=== PATIENT | male | born 1955 | race Caucasian/White ===

== ENCOUNTER 2023-06-10 12:25 | Inpatient (IN) | payer OTHER ==
--- OUTSIDE RECORDS SUMMARY | 2023-06-10 12:40 | XMS REPORT | Continuity of Care Document ---
:1955 Author Organization [facility] Address [address] [address] Care Team Providers Name Role Phone JYOTI SULLIVAN M.D. Attending Clinician Unavailable Jyoti Sullivan Attending Clinician Problems Condition Condition Condition Status Onset Resolution Last Treating Co mments Source Name Details Category Date Date Treatment Clinician Date AMP 1 YR AMP 1 YR Diagnosis Active 2017-07-27 Memoria F/U F/U Active 06-07 10:24:00 l 06/07/2017 00:00: Rodrigo REYNOLDS [facility] 00 AMP FU AMP FU Diagnosis Active 2016-07-14 Me moria Active 06-01 08:54:00 l 06/01/2016 00:00: Rodrigo REYNOLDS [facility] 00 F/U F/U Diagnosis Active 2016-10-13 Mem oria Active 07-16 12:47:00 l 07/16/2015 00:00: Rodrigo REYNOLDS [facility] 00 FU FU Diagnosis Active 2014-08-14 Mem oria Active 02-13 08:20:00 l 02/13/2014 00:00: Rodrigo REYNOLDS [facility] 00 POST D/C POST D/C Diagnosis Active 2013-10-08 Memoria F/U APPT - F/U APPT - 06-22 15:13:00 l NO ORDERS NO ORDERS 00:00: Sweta wheatley WRITTEN WRITTEN 00 Active 06/22/2013 GAIL [facility] AMPUTEE AMPUTEE Diagnosis Active 2013-06-12 Memoria Active 06-05 13:27:00 l 06/05/2013 00:00: Rodrigo REYNOLDS [facility] 00 LLE CRUSH LLE CRUSH Diagnosis Active 2013-06-07 Memoria INJURY INJURY 05-21 16:03:00 l Active 02:00: Valdemar 05/21/2013 00 [facility] LIFE LIFE Diagnosis Active 2013-05-25 [facility] oria FLIGHT FLIGHT 05-21 13:27:00 l Active 02:00: Valdemar 05/21/2013 00 [facility] LEG INJURY LEG Diagnosis Active 2013-05-21 Memoria INJURY 05-21 05:16:00 l Active 02:00: Valdemar 05/21/2013 00 [facility] Acquired Acquired Problem Active [place] 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, left knee, left History of History Problem Resolve 2017-07-30 Memoria amputation of d 00:24:11 l of leg amputation Rodrigo n through of leg tibia and through fibula tibia and (situation fibula ) (situation ) Resolved Problem 07/30/2017 left [facility] Hypertensi Hypertens Problem Active 2017-07-30 Memoria ve maria l 00:24:11 l disorder, disorder, Herm corry systemic systemic arterial arterial (disorder) (disorder) Active Problem 07/30/2017 [facility] Hyperlipid Hyperlipi Problem Active 2017-07-30 Memoria emia demia 00:24:11 l (disorder) (disorder) He rmann Active Problem 07/30/2017 [facility] Amputated Amputated Problem Active 2017-07-30 Memoria below knee below knee 00:24:11 l (finding) (finding) Herm corry Active Problem 07/30/2017 [facility] Amputation Problem Active 2017-07-30 M emoria of leg Amputation 00:24:11 l through of leg [place] tibia and through fibula tibia and (procedure fibula ) (procedure ) Active Problem 07/30/2017 left [facility] Amputee - Amputee - Problem Active 2017-07-30 Memoria limb limb 00:24:11 l (finding) (finding) Herm corry Active Problem 07/30/2017 [facility] Obesity Obesity Problem Active 2017-07-30 Me moria (disorder) (disorder) 00:24:11 l Active [place] Problem 07/30/2017 [facility] CRUSHING CRUSHING Diagnosis Active 2013-06-07 Memoria INJURY NOS INJURY NOS 16:03:00 l Active [facility] Foot Foot Problem Active [place] injury injury Physici ans History of Past Illness Condition Condition Condition Status Onset Resolution Last Treating Co mments Source Name Details Category Date Date Treatment Clinician Date Final: Final: Problem 2015-05-23 2015-05-23 Memoria Gait Gait 7-14 00:09:18 00:09:18 l abnormalit abnormalit 05:00: He rmann y y 00 05/20/2015 05/23/2015 [facility] Final: Final: Problem 2015-05-23 2015-05-23 Memoria Amputation Amputation 7-14 00:09:18 00:09:18 l stump stump 05:00: Valdemar complicati complicati 00 on NOS on NOS 05/20/2015 05/23/2015 [facility] Allergies, Adverse Reactions, Alerts This patient has no known allergies or adverse reactions. Social History Smoking Status Start Date Stop Date Source Social History [facility] Medications Ordered Filled Start Stop Current Ordering Indication Dosage Frequency Signature Comments Components Source Medication Medication Date Date Medication? Clinician (SIG) Name Name Sulfamethox Sulfamethox Yes JYOTI TAKE 1 TAB [facility] azole-Trime azole-Trime -09 SULLIVAN BID Physici thoprim thoprim 00:00: M.D. ans 800-160 MG 800-160 MG 00 Oral Tablet Oral Tablet atorvastati Yes 20 mg = 1 M emoria n 20 mg 9-20 tab, PO, l oral tablet 14:47: Bedtime, # Valdemar 00 90 tab, 1 Refill(s) Hydrochloro Yes 1 tab, PO, Memoria thiazide 9-20 Daily, # l 12.5 MG / 14:47: 30 tab, 0 Her fraga telmisartan 00 Refill(s) 80 MG Oral Tablet diuretic 2013-11 Yes diuretic Memor ia tablet 0-08 tablet, l 13:33: Daily, [place] 00 Refill(s) 0 lovastatin 2013-11 Yes 10 mg = 1 Me moria 10 mg oral 0-08 tab, PO, l tablet 13:33: Bedtime, # Nessa nn 00 30 tab, 0 Refill(s) Tdap No Kiana 0.5 mL, Memoria 05-21 Martha Route: IM, l 07:49: Quinn-Naida Drug Form: H ermann 00 nda INJ, kg, ONCE, Start date: 05/21/13 2:49:00, Stop date: 05/21/13 2:49:00(Td ap ) For Adolecent and Adult use For IM Use. Same as: Adacel (Tdap) Immunizations Ordered Immunization Filled Immunization Date Status Commen ts Source Name Name diphtheria/pertussis 2013-05-21 Completed Sy rial , acel/tetanus adult 08:40:00 Herm corry diphtheria/pertussis 2013-05-21 Completed Sy rial , acel/tetanus adult 08:40:00 Herm corry Vital Signs Vital Name Observation Time Observation Value Comments Source Height 2017-07-27 15:12:00 182.88 cm [facility] Height 2017-07-27 14:41:00 182.88 cm [facility] [place] Weight 2017-07-27 14:41:00 [facility] [place] BMI Calculated 2017-07-27 14:41:00 Mem[facility] al [place] Respitory Rate 2017-07-27 14:41:00 Memori al [place] Heart Rate 2017-07-27 14:41:00 [facility] [place] Systolic (mm Hg) 2017-07-27 14:41:00 Sy rial [place] Diastolic (mm Hg) 2017-07-27 14:41:00 Mem orial [place] Weight 2016-07-14 14:07:00 [facility] [place] BMI Calculated 2016-07-14 14:07:00 Memori al Val[place] Temperature Oral (F) 2016-07-14 14:07:00 98.3 F [facility] Height 2016-07-14 14:07:00 182.88 cm [facility] Heart Rate 2016-07-14 14:07:00 [facility] Respitory Rate 2016-07-14 14:07:00 Memori al [place] Systolic (mm Hg) 2016-07-14 14:07:00 Sy rial Valdemar Diastolic (mm Hg) 2016-07-14 14:07:00 Mem orial [place] BMI Calculated 2015-07-16 13:58:00 Memori al [place] Weight 2015-07-16 13:58:00 [facility] [place] Height 2015-07-16 13:58:00 182.88 cm [facility] [place] Heart Rate 2015-07-16 13:58:00 [facility] Respitory Rate 2015-07-16 13:58:00 Memori al [place] Systolic (mm Hg) 2015-07-16 13:58:00 Sy rial [place] Diastolic (mm Hg) 2015-07-16 13:58:00 Mem orial Valdemar Height 2015-05-20 14:58:00 182.88 cm [facility] Systolic (mm Hg) 2015-05-20 13:26:00 Sy rial [place] Diastolic (mm Hg) 2015-05-20 13:26:00 Mem orial [place] Weight 2015-05-20 13:26:00 [facility] BMI Calculated 2015-05-20 13:26:00 Memori al [place] Height 2015-05-20 13:26:00 182.88 cm [facility] [place] Height 2015-02-18 15:06:00 182.88 cm [facility] Systolic (mm Hg) 2015-02-18 13:26:00 Sy rial [place] Diastolic (mm Hg) 2015-02-18 13:26:00 Mem orial Valdemar Weight 2015-02-18 13:26:00 [facility] Height 2015-02-18 13:26:00 182.88 cm [facility] BMI Calculated 2015-02-18 13:26:00 Memori al [place] Temperature Oral (F) 2015-02-18 13:26:00 97.8 F [facility] Heart Rate 2015-02-18 13:26:00 [facility] [place] Respitory Rate 2015-02-18 13:26:00 Memori al [place] Weight 2014-11-13 14:16:00 [facility] [place] Height 2014-11-13 14:16:00 182.88 cm [facility] BMI Calculated 2014-11-13 14:16:00 Memori al Valdem[place] Respitory Rate 2014-11-13 14:16:00 Memori al [place] Diastolic (mm Hg) 2014-11-13 14:16:00 Mem orial [place] Systolic (mm Hg) 2014-11-13 14:16:00 Sy rial Valdemar Heart Rate 2014-11-13 14:16:00 [facility] [place] Height 2014-08-15 19:03:00 182.88 cm [facility] Diastolic (mm Hg) 2014-08-14 13:29:00 Mem orial [place] Systolic (mm Hg) 2014-08-14 13:29:00 Sy rial [place] Heart Rate 2014-08-14 13:29:00 [facility] Respitory Rate 2014-08-14 13:29:00 Memori al [place] Weight 2014-08-14 13:29:00 [facility] Height 2014-08-14 13:29:00 182.88 cm [facility] [place] BMI Calculated 2014-08-14 13:29:00 Memori al Valdemar Respitory Rate 2013-10-08 21:16:00 Memori al [place] Systolic (mm Hg) 2013-10-08 21:16:00 Sy rial [place]dem[place] Heart Rate 2013-10-08 21:16:00 [facility] Diastolic (mm Hg) 2013-10-08 21:16:00 Mem orial [place] Weight 2013-10-08 21:16:00 [facility] [place] Height 2013-10-08 21:16:[address] [facility] Procedure Date / Time Performed Performing Clinician Mau daniels Amputation of the lower [facility] limb<sup>1</sup> Encounters Start End Encounter Admission Attending Care Care Encounter Source Date/Time Date/Time Type Type Clinicians Facility Department ID 2023-06-10 Preadmit [facility] GAILIE [id number] emoria 12:36:05 00 roberth SolValdemar 2023-06-10 Outpatient [facility] MIGUEL [id number] Memoria 12:36:05 05 l Valdemar 2019-01-08 2019-01-08 Appointmen ABDIFATAH SULLIVAN UTP [id number] [place] 15:30:00 15:30:00 t; JYOTI SULLIVAN P hysici DANIELLE, M.D. ans M.D. 2017-07-27 2017-07-28 Outpatient nullFlavo [facility] [id number] Memoria 13:00:00 04:59:00 r [facility] 16 l Valdemar [facility] 2017-07-27 2017-07-27 Outpatient LESLIE SullivanTIRR [id number] 08:00:00 23:59:00 Jyoti Jones 2017-07-27 2017-07-27 Appointmen ABDIFATAH SULLIVAN [facility]TP [id number] [place] 10:15:00 10:15:00 t; JYOTI SULLIVAN P hysici DANIELLE, M.D. ans M.D. 2016-07-14 2016-07-15 Outpatient nullFlavo [facility] [id number] Memoria 13:46:00 04:59:00 r [facility] 15 l Valdemar [facility] 2016-07-14 2016-07-14 Outpatient Sullivan, MHTIRR MHTIRR [id number] 08:46:00 23:59:00 Jyoti H 15 2015-07-16 2015-07-17 Outpatient nullFlavo [facility] [id number] Memoria 13:50:00 04:59:00 r [facility] 13 [facility] 2015-07-16 2015-07-16 Outpatient Sullivan, MHTIRR MHTIRR [id number] 08:50:00 23:59:00 Jyoti H 13 2015-05-20 2015-05-21 Outpatient nullFlavo [facility] [id number] Memoria 13:00:00 04:59:00 r [facility] 12 [facility] 2015-05-20 2015-05-20 Outpatient Sullivan, MHTIRR MHTIRR [id number] 08:00:00 23:59:00 Jyoti H 12 2015-02-18 2015-02-19 Outpatient nullFlavo [facility] [id number] Memoria 13:11:00 04:59:00 li [place] 11 roberth Solann 2015-02-18 2015-02-18 Outpatient Sullivan, 2.16.840. 2.16.840.1. 4 [id number] 08:11:00 23:59:00 Jyoti H [id number] [id number] 9429-01-07 2014-11-14 Outpatient nullFlavo [facility] [id number] Memoria 13:54:00 05:59:00 r Valdemar 09 roberth CHEN [place] 2014-11-13 2014-11-13 Outpatient Sullivan, 2.16.840. 2.16.840.1. 4 [id number] 07:54:00 23:59:00 Jyoti H [id number] [id number] 02 1011-10-08 2014-08-15 Outpatient nullFlavo [facility] [id number] Memoria 13:00:00 04:59:00 r Valdemar 08 roberth Aldrich 2014-08-14 2014-08-14 Outpatient Sullivan, 2.16.840. 2.16.840.1. 4 [id number] 08:00:00 23:59:00 Jyoti Kimble [id number] 0612-11-29 2013-11-03 Outpatient 2.16.840. 2.16.840.1. 4 [id number] Memoria 13:44:00 23:59:00 [id number] [id number] 5.0.100 Rodrigo n 00 [facility] 2013-10-08 2013-10-08 Outpatient 2.16.840. 2.16.840.1. 4 [id number] Memoria 11:11:00 23:59:00 [id number] 3.615.0.1 5.0.100 Rodrigo n 00 [facility] 2013-10-08 2013-10-08 Outpatient [facility] [id number] Memoria 11:11:00 11:11:[address] [facility] 2013-05-21 2013-05-21 AA nullFlavo [facility] [id number] Memoria 02:36:00 23:59:00 [facility] 70 [facility] 2013-05-21 2013-05-21 Inpatient nullFlavo [facility] [id number] Memoria 02:25:00 02:25:00 [facility] 67 [facility] Results This patient has no known results. Notes Date/Time Note Provider Source 2013-06-07 EXAM: Abdomen 1 view [facility] dical 08:34:00-00:00 Center DATE: Jun 07, 2013 08:34:00 AM. CLINICAL INDICATION: Constipation COMPARISON: 06/05/2013 FINDINGS: Gas-distended, mildly dilate d loops of small bowel seen measuring approximately up to 4.5 cm in diameter. Gaseous distention of the colon also seen. Overall, this may represent small bowel ileus. No abnormal calcifications seen. Multilevel degenerative changes seen in the bone s. IMPRESSION: 1. Interval significant impr ovement with residual mild dilation of gas- distended small bowel loops. 2013-06-05 EXAM: XR ABDOMEN 1 VIEW [facility] 14:30:00-00:00 Center DATE: June 05, 2013 at 1441. INDICATION: Abdominal distention. ADDITIONAL INFORMATION: None. COMPARISON: X-ray abdomen June 03, 2013. TECHNIQUE: Four AP supine views of the abdomen p rovided for interpretation. FINDINGS: Lower thorax is unremarkable where visualized. Diffuse gaseous distention o f the small and large bowel appears stable compared to prior exam, most likely representing ileus. NG tube terminates in the stomach. No abnormal mass or organomegaly seen. No suspicious calcifications found. No worrisome skeletal abnormalities. IMPRESSION: Ileus; continued surveillance with s erial radiographs recommend. 2013-06-04 EXAM:ABDOMEN [address] [facility] ica 22:55:00-00:00 Center DATE: Abdomen 1 view - Jun 04, 2013 10:55:00 PM . CLINICAL INDICATION: Abdominal distention. COMPARISON: June 03, 2013 FINDINGS: AP supine view of the abdom en upper abdomen is available for review. NG tube in place with tip in the gastric fundus. Persistent gaseous distention of small and large bowel loops predominantly in the t ransverse colon, with no sig nificant change from prior exam. Recommend continued followup. Degenerative changes in the dorsolumbar spine IMPRESSION: NG tube with tip in the char darcy fundus. Persistent gaseous distention of small and large bowel may represent ileus. Recommend continued followup. 2013-06-03 EXAM: XR ABDOMEN 1 VIEW [facility] 18:00:00-00:00 Center DATE: 06/03/2013 at 1824 hours. INDICATION: Abdominal distention. ADDITIONAL INFORMATION: None. COMPARISON: 05/29/2013 at 0218 hours. TECHNIQUE: 2 radiographs provided for interpreta tion. DISCUSSION: Lower thorax is unremarkable where visualized. Diffusely dilated loops of s mall and large bowel suggest ileus. Some stool is identified in the rectum. No abnormal mass or organomegaly seen. No suspicious calcifications found. No worrisome skeletal abnormalities. IMPRESSION: 1. Probable adynamic ileus. Continued surveillance with serial radiographs recommended to a ensure resolution and/or exclude obstruction. Interpreted by Kavon Summers MD. 2013-05-30 EXAM: XR CHEST, 1 VIEW [facility] 22:45:00-00:00 Center DATE: May 30, 2013 10:45:00 PM INDICATION: Fever COMPARISON: One view chest radiograph dated May 29, 2013 TECHNIQUE: Single frontal view of the chest is s ubmitted for interpretation. FINDINGS: There is left lower lobe sub segmental atelectasis present. The lungs are clear of focal consolidation or pneumothorax. The costophrenic sulci are sharp without effusion. The cardiomediastinal silhouette and visualized osseous structures are unremarka ble. IMPRESSION: Unchanged radiographic appearance of the chest. 2013-05-29 EXAM: CT ANGIOGRAM CHEST WITH CONTRAST [facility] 02:15:00-00:00 Center DATE: May 29, 2013 02:29:00 AM COMPARISON: CT chest dated May 21, 2013. INDICATION: Arrhythmias TECHNIQUE: Following intrave nous administration of contrast, the chest was scanned from apices to the bases according to the PE protocol. Multiplanar reformatted images (MPR) in the sagittal, coronal an d oblique images as well as maximal intensity projection (MIP) images were reviewed. FINDINGS: The study is limited by genesis ng of contrast bolus. No central or segmental pulmonary embolism is identified. The lungs are clear of focal consolidation or pneumothorax. A 5 mm pulmonary nodule is present in the right lower lobe on series 5 image 102 not visualized on the comparison exam. A 2 mm pulmonary nodul e is present along the right minor fissure on series 5 image 73. A calcified granuloma is noted in the right lower lobe on series 5 image 139. There are scattered areas of subsegmental atelectasis noted throughout the lungs. A holly ear opacity in the left lung base on series 5 image 146 is also thought to represent subsegmental atelectasis. Evaluation of the underlying parenchyma is somewhat limited due to 2 motion artifact. The cardiac chambers are not enlarged. There is no pericardial effusion. The coronary arteries demonstrate a mild amount of atherosclerotic calcification. The measuring main pulmonary artery trunk and thoracic aorta are within normal limits. No hilar, mediastinal, supra clavicular, or axillary lymphadenopathy is present. A calcified posterior mediastinal lymph node is noted adjacent to the distal esophagus on series 5 image 139. The visualized upper abdomen is poorly opacified due to the phase of contrast, but grossly unremarkable. A thyroid calcification is present in the right lobe. The esophagus is unremarkable. Mild degenerative changes ar e present within the thoracic spine. A sclerotic lesion is noted adjacent to the superior endplate at T8, which may represent a bone island. The soft tissues are unremarkable. IMPRESSION: No evidence of pulmonary embolism or other acute intrathoracic abnormality. 2013-05-29 PORTABLE CHEST 2013-05-29 03:07:00 [facility] 01:20:00-00:00 Center COMPARISON: 05/21/2013 CLINICAL INDICATION: Fever DISCUSSION: Aside from disco id atelectasis within left lower lobe, lungs are clear. No pleural abnormalities are seen. Cardiac silhouette and mediastinum are unchanged. 2013-05-21 EXAM: LEFT ANKLE 3 VIEWS [facility] 11:35:00-00:00 EXAM: LEFT FOOT 3 VIEWS Center DATE: May 21, 2013 11:49:00 AM INDICATION: Trauma COMPARISON: CT of the left ankle and foot on May.. TECHNIQUE: AP, lateral and oblique radio graphs of the left ankle and left foot FINDINGS: Study is limited b y overlying cast material. There is a subtle nondisplaced fracture the distal fibula. No widening of the Lisfranc joint is seen on the foot radiograph with widening of approx imately 4 mm. Nondisplaced f ractures of the phalanges and metatarsals are redemonstrated. Associated soft tissue swelling throughout the foot and ankle. Subcutaneous emphysema noted with lateral laceration. IMPRESSION: Postreduction radiographs wi th no significant interval change. However, minimal 4mm widening of the Lisfranc joint is now seen. 2013-05-21 EXAM: LEFT ANKLE 3 VIEWS [facility] 11:35:00-00:00 EXAM: LEFT FOOT 3 VIEWS Center DATE: May 21, 2013 11:49:00 AM INDICATION: Trauma COMPARISON: CT of the left ankle and foot on May.. TECHNIQUE: AP, lateral and oblique radio graphs of the left ankle and left foot FINDINGS: Study is limited b y overlying cast material. There is a subtle nondisplaced fracture the distal fibula. No widening of the Lisfranc joint is seen on the foot radiograph with widening of approx imately 4 mm. Nondisplaced f ractures of the phalanges and metatarsals are redemonstrated. Associated soft tissue swelling throughout the foot and ankle. Subcutaneous emphysema noted with lateral laceration. IMPRESSION: Postreduction radiographs wi th no significant interval change. However, minimal 4mm widening of the Lisfranc joint is now seen. 2013-05-21 EXAM: CT Foot without contrast [facility] 10:00:00-00:00 EXAM: CT ANKLE WITHOUT CONTRAST Center DATE: May 21, 2013 10:08:00 AM INDICATION: Fracture, laceration, forklift versu s worker COMPARISON: None TECHNIQUE: Multiple CT image s of the left ankle and foot were obtained with reconstructions in the coronal and sagittal planes. Intravenous contrast was not given. FINDINGS: Tibia: Intact Fibula: Comminuted, nondispl aced fracture of the fibula with extension to the distal syndesmosis. Talus: Intact. Osteophyte is visualized from the calcaneus in the sinus tarsi. The subtalar joints are intact. Calcaneus: Intact. Plantar c alcaneal enthesophyte and enthesophyte of the calcaneal tuberosity. Tarsal bones: Avulsion fract ure of the medial navicular bone. Avulsion fracture of the inferior medial cuneiform. Nondisplaced fracture of the lateral cuneiform with intra-articular extension. The middle cuneiform is intact. The cuboid is intact. Metatarsals and phalanges: C omminuted fractures of the plantar and dorsal aspects of the base of the second metatarsal with intra-articular extension, representing a nondisplaced Lisfranc ligamentous av ulsion injury. Comminuted fr acture with intra-articular extension at the base of the fourth metatarsal. Osteophyte at the dorsal aspect of the distal first metatarsal. Nondisplaced fracture of the plant ar surface of the head of th e fifth metatarsal. Oblique fracture of the base of the fifth toe proximal phalanx with intra-articular extension minimal medial dislocation. Avulsed fracture fragment at the base and head of the first toe proximal phalanx with intra-articular extension. Comminuted fracture at the base of the distal first phalanx with intra-articular extension and fracture of the tuft of th e first toe. Traumatic amput ation and fracture of the distal second phalanx with dislocation of the DIP joint. Comminuted displaced fracture of the distal fifth phalanx. Joints: There is dislocation of the second DIP j oint. Lateral tendons: Laceration adjacent to the peroneus brevis is visualized with possible tendon injury. Peroneus longus tendons are normal in in appearance.>] Medial tendons: The tibialis posterior, flexor digitorum longus and flexor hallux longus tendons are normal in in appearance. Anterior tendons: The tibial is anterior, extensor hallux longus and extensor digitorum longus tendons are normal in appearance. Significant soft tissue defe ct overlying the lateral ankle and foot with extension into the plantar soft tissues. Soft tissue gas is visualized from the lateral soft tissues extending into the dorsal braxton rface heading continuing into the medial soft ti ssues of the foot and ankle. IMPRESSION: 1. Avulsion fracture at the Lisfranc ligament insertion at the second metatarsal. 2. Comminuted nondisplaced f racture of the fibula with extension into the distal syndesmosis. 3. Avulsion fracture of the medial navicular bone and inferior medial cuneiform. Fracture of the lateral cuneiform with intra-articular extension. 4. Comminuted fracture intra -articular extension of the base of the fourth metatarsal, fracture of the head of the fifth metatarsal, fracture of the base of the fifth proximal phalanx, avulsion fracture s of the base and head of th e first toe proximal phalanx, comminuted fracture of the base of the distal first phalanx and tuft of the first toe, indication fracture of the distal second phalanx with dis location the DIP joint, comm inuted displaced fracture of the fifth distal phalanx. 5. Large laceration adjacent to the peroneus brevis with incomplete visualization of the tendon, may represent tendinous injury. 6. Significant soft tissue d efect and soft tissue gas extending from the lateral soft tissues of the ankle to the plantar portion of the foot and through to the medial soft tissues of the foot and ankle. 2013-05-21 EXAM: CT Foot without contrast [facility] 10:00:00-00:00 EXAM: CT ANKLE WITHOUT CONTRAST Center DATE: May 21, 2013 10:08:00 AM INDICATION: Fracture, laceration, forklift versu s worker COMPARISON: None TECHNIQUE: Multiple CT image s of the left ankle and foot were obtained with reconstructions in the coronal and sagittal planes. Intravenous contrast was not given. FINDINGS: Tibia: Intact Fibula: Comminuted, nondispl aced fracture of the fibula with extension to the distal syndesmosis. Talus: Intact. Osteophyte is visualized from the calcaneus in the sinus tarsi. The subtalar joints are intact. Calcaneus: Intact. Plantar c alcaneal enthesophyte and enthesophyte of the calcaneal tuberosity. Tarsal bones: Avulsion fract ure of the medial navicular bone. Avulsion fracture of the inferior medial cuneiform. Nondisplaced fracture of the lateral cuneiform with intra-articular extension. The middle cuneiform is intact. The cuboid is intact. Metatarsals and phalanges: C omminuted fractures of the plantar and dorsal aspects of the base of the second metatarsal with intra-articular extension, representing a nondisplaced Lisfranc ligamentous av ulsion injury. Comminuted fr acture with intra-articular extension at the base of the fourth metatarsal. Osteophyte at the dorsal aspect of the distal first metatarsal. Nondisplaced fracture of the plant ar surface of the head of th e fifth metatarsal. Oblique fracture of the base of the fifth toe proximal phalanx with intra-articular extension minimal medial dislocation. Avulsed fracture fragment at the base and head of the first toe proximal phalanx with intra-articular extension. Comminuted fracture at the base of the distal first phalanx with intra-articular extension and fracture of the tuft of th e first toe. Traumatic amput ation and fracture of the distal second phalanx with dislocation of the DIP joint. Comminuted displaced fracture of the distal fifth phalanx. Joints: There is dislocation of the second DIP j oint. Lateral tendons: Laceration adjacent to the peroneus brevis is visualized with possible tendon injury. Peroneus longus tendons are normal in in appearance.>] Medial tendons: The tibialis posterior, flexor digitorum longus and flexor hallux longus tendons are normal in in appearance. Anterior tendons: The tibial is anterior, extensor hallux longus and extensor digitorum longus tendons are normal in appearance. Significant soft tissue defe ct overlying the lateral ankle and foot with extension into the plantar soft tissues. Soft tissue gas is visualized from the lateral soft tissues extending into the dorsal braxton rface heading continuing into the medial soft ti ssues of the foot and ankle. IMPRESSION: 1. Avulsion fracture at the Lisfranc ligament insertion at the second metatarsal. 2. Comminuted nondisplaced f racture of the fibula with extension into the distal syndesmosis. 3. Avulsion fracture of the medial navicular bone and inferior medial cuneiform. Fracture of the lateral cuneiform with intra-articular extension. 4. Comminuted fracture intra -articular extension of the base of the fourth metatarsal, fracture of the head of the fifth metatarsal, fracture of the base of the fifth proximal phalanx, avulsion fracture s of the base and head of th e first toe proximal phalanx, comminuted fracture of the base of the distal first phalanx and tuft of the first toe, indication fracture of the distal second phalanx with dis location the DIP joint, comm inuted displaced fracture of the fifth distal phalanx. 5. Large laceration adjacent to the peroneus brevis with incomplete visualization of the tendon, may represent tendinous injury. 6. Significant soft tissue d efect and soft tissue gas extending from the lateral soft tissues of the ankle to the plantar portion of the foot and through to the medial soft tissues of the foot and ankle. 2013-05-21 EXAM: XR RIGHT FOOT 3 VIEWS [facility] 09:40:00-00:00 Center DATE: 08/21/2013; 0933 hours INDICATION: Fracture. COMPARISON: None. TECHNIQUE: AP, lateral and oblique radiographs o f the right foot DISCUSSION: No acute fractur e or malalignment is identified. The ankle mortise is congruent. No soft tissue abnormality is identified. IMPRESSION: No abnormality identified. 2013-05-21 EXAM: XR RIGHT ANKLE 3 VIEWS [facility] 09:40:00-00:00 Center DATE: 05/19/2013 0933 hours INDICATION: Fracture. COMPARISON: None. TECHNIQUE: AP, lateral and oblique radiographs o f the right ankle DISCUSSION: No acute fractur e or malalignment is identified. The ankle mortise is congruent. No soft tissue abnormality is identified. Dorsal osteophyte of the talus. Enthesophyte formation of the superior calcaneal tuberosity. IMPRESSION: No acute abnormality identified. Dorsal osteophyte of the talus. Enthesophyte formation at the superior calcaneal tuberosity 2013-05-21 EXAM: LEFT ANKLE 3 VIEWS [facility] 05:30:00-00:00 EXAM: LEFT FOOT 3 VIEWS Center DATE: May 21, 2013 05:55:00 AM INDICATION: Trauma COMPARISON: Left foot radiographs, CTA left lowe r extremity of the same day. TECHNIQUE: AP, lateral and oblique radio graphs of the left ankle and left foot FINDINGS: Evaluation of the foot is again limited by suboptimal positioning and overlying splint.. A transversely oriented fracture is seen through the distal tuft of the left first phalanx. An intra-ar ticular, mildly displaced fr acture is seen through the base of the left fifth proximal phalanx. Nondisplaced fractures at the plantar aspect of the bases of the second and fourth metatarsals is better e valuated on CT of the same d ate. A nondisplaced lateral malleolus fracture is again identified. Extensive soft tissue swelling and subcutaneous gas is again noted diffusely throughout the foot. IMPRESSION: 1. Evaluation is again limited by subopt imal positioning end overlying splint. 2. Transverse fracture through the distal tuft o f the first phalanx. 3. Intra-articular fracture through the base of the left fifth proximal phalanx. 4. Nondisplaced fractures of the bases of the second and fourth metatarsals better evaluated on CT of the same date. 5. Nondisplaced left lateral malleolus fracture. 6. Extensive soft tissue swe lling and subcutaneous gas diffusely throughout the foot. 2013-05-21 EXAM: LEFT ANKLE 3 VIEWS [facility] 05:30:00-00:00 EXAM: LEFT FOOT 3 VIEWS [facility] DATE: May 21, 2013 05:55:00 AM INDICATION: Trauma COMPARISON: Left foot radiographs, CTA left lowe r extremity of the same day. TECHNIQUE: AP, lateral and oblique radio graphs of the left ankle and left foot FINDINGS: Evaluation of the foot is again limited by suboptimal positioning and overlying splint.. A transversely oriented fracture is seen through the distal tuft of the left first phalanx. An intra-ar ticular, mildly displaced fr acture is seen through the base of the left fifth proximal phalanx. Nondisplaced fractures at the plantar aspect of the bases of the second and fourth metatarsals is better e valuated on CT of the same d ate. A nondisplaced lateral malleolus fracture is again identified. Extensive soft tissue swelling and subcutaneous gas is again noted diffusely throughout the foot. IMPRESSION: 1. Evaluation is again limited by subopt imal positioning end overlying splint. 2. Transverse fracture through the distal tuft o f the first phalanx. 3. Intra-articular fracture through the base of the left fifth proximal phalanx. 4. Nondisplaced fractures of the bases of the second and fourth metatarsals better evaluated on CT of the same date. 5. Nondisplaced left lateral malleolus fracture. 6. Extensive soft tissue swe lling and subcutaneous gas diffusely throughout the foot. 2013-05-21 EXAM: CT CERVICAL SPINE WITHOUT CONTRAST [facility] 04:30:00-00:00 Center DATE: May 21, 2013 02:50:00 AM INDICATION: Trauma COMPARISON: None available TECHNIQUE: Axially oriented 2mm thick images were obtained through the entire cervical spine, without contrast. Sagittal and coronal reformations are also provided. FINDINGS: No fracture, malal ignment or other acute bony abnormality of the cervical spine is identified. Multilevel degenerative changes are present including disc space narrowing with vacuum phenomenon from C5 through C7. Anterio r bridging osteophytes are seen from C3 through C7. Uncovertebral spurring results in moderate neuroforaminal stenosis on the left at C3/4 and C5/6. No soft tissue abnormality is identified. IMPRESSION: 1. No acute fracture or malalignment 2. Degenerative disk disease 2013-05-21 EXAM: CTA LOWER EXTREMITY WITH IV CONTRAST [facility] 04:30:00-00:00 Center DATE: 05/21/2013, 0321 hours INDICATION: Fracture COMPARISON: None available. TECHNIQUE:Rapid acquisition axially oriented images were obtained from the level of left acetabulum through the level of distal left foot during the infusion of intravenous contrast the purposes of luisa ography. Sagittal and pearson l reformat images, as well as sagittal and coronal MIP images are provided. FINDINGS: The common femoral bifurcate s normally into the superficial and profunda femoris, with normal contrast opacification of the popliteal. The tibioperoneal trunk and anterior tibial artery are unremarkable in appearance, with normal more distal contrast opacification of the anterior tibial, posterior tibial and peroneal arteries. A multifragmented minimally displaced fracture of the proximal fibular head and neck is seen with a mildly displaced obliquely oriented proximal fibular diaphysis fracture with posterior apex angulation . A minimally displaced dist al fibular head fractures present as well. There are questionable lucencies through the intermediate, medial, and lateral cuneiform bones (images one and [id number], series 2). Circumferential soft tissue injury is seen about the distal thigh extending into the foot with areas of intramuscular gas consistent with an open injury and possible degloving. The visualized intra-abdominal structures are un remarkable. IMPRESSION: 1. Patency of all left lower extremity arteries into the foot. 2. Minimally displaced left proximal and distal fibular head and neck fractures and mildly displaced left oblique proximal fibular diaphysis fracture 3. Questionable lucencies of the cuneiforms may represent fractures. Please correlate for point tenderness. 4. Soft tissue injury from t he left distal thigh into the foot consistent with an open injury 2013-05-21 EXAM: CT CHEST WITH IV CONTRAST [facility] 04:30:00-00:00 EXAM: CT ABDOMEN WITH IV CONTRAST Center EXAM: CT PELVIS WITH IV CONTRAST DATE: May 21, 2013 04:53:00 AM INDICATION: Chest pain COMPARISON: None available TECHNIQUE: Following the une ventful administration of IV contrast, axially oriented images were obtained from the thoracic inlet through the lung bases, and then from the lung bases through the ischial tuberosities. Delayed imagin g was then performed through the kidneys, using a radiation reduction technique. Sagittal and coronal reformat images of the entire torso are provided in multiple series. FINDINGS: No pulmonary or pleural-base d abnormality is identified. No cardiac or other mediastinal abnormality is identified. No vascular abnormality is identified. The liver, spleen, pancreas, gallbladder, adrenal glands are unremarkable. Multiple benign-appearing hypodensities are seen throughout the kidneys bilaterally, consistent with simple cysts. No bowel abnormality is iden tified. No free intraperitoneal air or fluid is identified. The urinary bladder and organs of reproduction are unremarkable. No acute bony abnormality is identified. IMPRESSION: No acute traumatic abnormality. 2013-05-21 EXAMINATION: CT HEAD WITHOUT CONTRAST [facility] 04:30:00-00:00 Center DATE: May 21, 2013 4:22 a.m. INDICATION: Head trauma. COMPARISON: none available. TECHNIQUE: Axial 5 mm scans were done from the s kull base through the vertex. DISCUSSION: Normal ventricle s, sulci and cisterns. No edema or hemorrhage. Intact skull base and cranial vault. There is no fracture. The mastoid air cells and paranasal sinuses are clear. Hypoplastic frontal sinus. IMPRESSION: Normal skull and brain. No fracture. 2013-05-21 [facility] 03:10:00-00:00 EXAM: LEFT KNEE 3 VIEWS Center EXAM: LEFT TIBIA FIBULA 2 VIEWS EXAM: LEFT ANKLE 3 VIEWS EXAM: LEFT FOOT 3 VIEWS DATE: May 21, 2013 02:51:00 AM INDICATION: Forklift accident, pain COMPARISON: None available. FINDINGS: The left femur is intact. An obliquely oriented fractu re is seen through the left fibular neck and proximal diaphysis with slight anterior displacement of the distal fragment and no significant angulation. A linear lucency through the lateral malleolus is suspicious for nondisplaced fracture. Evaluation of the foot and a nkle is limited by suboptimal positioning. An age- indeterminate fracture seen through the distal tuft of the left first digit. Extensive soft tissue swelli ng and subcutaneous gas is seen extending from the distal left femur to the foot. IMPRESSION: 1. Obliquely oriented mildly displaced fracture of the left fibular neck and proximal diaphysis. 2. Nondisplaced left lateral malleolus fracture. 3. Evaluation of the toes is limited by suboptimal positioning. Age indeterminate fracture of the distal tuft of the left first digit. 4. Extensive soft tissue swe lling and subcutaneous gas extending from the distal left femur to the foot. 2013-05-21 EXAM: LEFT FEMUR 2 VIEWS [facility] 03:10:00-00:00 EXAM: LEFT KNEE 3 VIEWS Center EXAM: LEFT TIBIA FIBULA 2 VIEWS EXAM: LEFT ANKLE 3 VIEWS EXAM: LEFT FOOT 3 VIEWS DATE: May 21, 2013 02:51:00 AM INDICATION: Forklift accident, pain COMPARISON: None available. FINDINGS: The left femur is intact. An obliquely oriented fractu re is seen through the left fibular neck and proximal diaphysis with slight anterior displacement of the distal fragment and no significant angulation. A linear lucency through the lateral malleolus is suspicious for nondisplaced fracture. Evaluation of the foot and a nkle is limited by suboptimal positioning. An age- indeterminate fracture seen through the distal tuft of the left first digit. Extensive soft tissue swelli ng and subcutaneous gas is seen extending from the distal left femur to the foot. IMPRESSION: 1. Obliquely oriented mildly displaced fracture of the left fibular neck and proximal diaphysis. 2. Nondisplaced left lateral malleolus fracture. 3. Evaluation of the toes is limited by suboptimal positioning. Age indeterminate fracture of the distal tuft of the left first digit. 4. Extensive soft tissue swe lling and subcutaneous gas extending from the distal left femur to the foot. 2013-05-21 EXAM: LEFT FEMUR 2 VIEWS [facility] 03:10:00-00:00 EXAM: LEFT KNEE 3 VIEWS Center EXAM: LEFT TIBIA FIBULA 2 VIEWS EXAM: LEFT ANKLE 3 VIEWS EXAM: LEFT FOOT 3 VIEWS DATE: May 21, 2013 02:51:00 AM INDICATION: Forklift accident, pain COMPARISON: None available. FINDINGS: The left femur is intact. An obliquely oriented fractu re is seen through the left fibular neck and proximal diaphysis with slight anterior displacement of the distal fragment and no significant angulation. A linear lucency through the lateral malleolus is suspicious for nondisplaced fracture. Evaluation of the foot and a nkle is limited by suboptimal positioning. An age- indeterminate fracture seen through the distal tuft of the left first digit. Extensive soft tissue swelli ng and subcutaneous gas is seen extending from the distal left femur to the foot. IMPRESSION: 1. Obliquely oriented mildly displaced fracture of the left fibular neck and proximal diaphysis. 2. Nondisplaced left lateral malleolus fracture. 3. Evaluation of the toes is limited by suboptimal positioning. Age indeterminate fracture of the distal tuft of the left first digit. 4. Extensive soft tissue swe lling and subcutaneous gas extending from the distal left femur to the foot. 2013-05-21 EXAM: LEFT FEMUR 2 VIEWS [facility] 03:10:00-00:00 EXAM: LEFT KNEE 3 VIEWS Center EXAM: LEFT TIBIA FIBULA 2 VIEWS EXAM: LEFT ANKLE 3 VIEWS EXAM: LEFT FOOT 3 VIEWS DATE: May 21, 2013 02:51:00 AM INDICATION: Forklift accident, pain COMPARISON: None available. FINDINGS: The left femur is intact. An obliquely oriented fractu re is seen through the left fibular neck and proximal diaphysis with slight anterior displacement of the distal fragment and no significant angulation. A linear lucency through the lateral malleolus is suspicious for nondisplaced fracture. Evaluation of the foot and a nkle is limited by suboptimal positioning. An age- indeterminate fracture seen through the distal tuft of the left first digit. Extensive soft tissue swelli ng and subcutaneous gas is seen extending from the distal left femur to the foot. IMPRESSION: 1. Obliquely oriented mildly displaced fracture of the left fibular neck and proximal diaphysis. 2. Nondisplaced left lateral malleolus fracture. 3. Evaluation of the toes is limited by suboptimal positioning. Age indeterminate fracture of the distal tuft of the left first digit. 4. Extensive soft tissue swe lling and subcutaneous gas extending from the distal left femur to the foot. 2013-05-21 EXAM: LEFT FEMUR 2 VIEWS [facility] 03:09:00-00:00 EXAM: LEFT KNEE 3 VIEWS Center EXAM: LEFT TIBIA FIBULA 2 VIEWS EXAM: LEFT ANKLE 3 VIEWS EXAM: LEFT FOOT 3 VIEWS DATE: May 21, 2013 02:51:00 AM INDICATION: Forklift accident, pain COMPARISON: None available. FINDINGS: The left femur is intact. An obliquely oriented fractu re is seen through the left fibular neck and proximal diaphysis with slight anterior displacement of the distal fragment and no significant angulation. A linear lucency through the lateral malleolus is suspicious for nondisplaced fracture. Evaluation of the foot and a nkle is limited by suboptimal positioning. An age- indeterminate fracture seen through the distal tuft of the left first digit. Extensive soft tissue swelli ng and subcutaneous gas is seen extending from the distal left femur to the foot.
[2023-06-10 13:28] LABS: Absolute Lymphocytes (CBC) 2.4 K/uL (0.7-4.9); Hematocrit 46.4 % (39.6-49.0); Lymphocytes % 36.1 % (15.3-44.8); MCV 88.1 fL (80-100); MPV 6.9 fL (7.6-11.3); Platelets 279 thou/uL (152-406); Protime INR 0.99; RBC Red Blood Cell Count 5.26 M/uL (4.33-5.43)
--- NOTE | 2023-06-10 13:28 | RAD REPORT ---
EXAM DESCRIPTION: CT - Ct Stroke Brain Wo Cont - 06/10/2023 1:11 pm CLINICAL HISTORY: Slurred speech COMPARISON: none TECHNIQUE: Computed axial tomography of the head was obtained. All CT scans are performed using dose optimization technique as appropriate and may include automated exposure control or mA/KV adjustment according to patient size. FINDINGS: An intracranial bleed is not seen . The ventricles are normal in caliber. No extra-axial fluid collection is noted. 13 millimeter low-density area left cerebellum. Small area increased density in this region Fluid within the sinuses/ mastoids is not seen. IMPRESSION: 13 millimeter mostly low-density area left cerebellum probably an infarction. It has mor e of the appearance of being acute/subacute and chronic. Small area of increased density in this natalie on probably volume averaging of normal brain parenchyma. Small amount of hemorrhage although possible is considered less likely Cheryl of the emergency room was notified at 1:22 p.m. June 10, 2023
[2023-06-10 13:45] LABS: Albumin 3.4 g/dL (3.4-5.0); Bilirubin Direct 0.1 mg/dL (0-0.2); Bilirubin Indirect, Calculated 0.4 mg/dL (0.2-0.8); Bilirubin Total 0.5 mg/dL (0.2-1.0); Magnesium 2.3 mg/dL (1.6-2.4); Potassium 3.8 mEq/L (3.5-5.1); Protein, Total 7.4 g/dL (6.4-8.2); Troponin High Sensitivity 8.3 pg/mL (<58.9)
--- NOTE | 2023-06-10 13:55 | RAD REPORT ---
EXAM DESCRIPTION: CTHead angio06/10/2023 1:26 pm CLINICAL HISTORY: Slurred speech COMPARISON: None TECHNIQUE: 100 cc Isovue [address] angiogram of the head was obtained. 3D MIPS reconstruction performed. All CT scans are performed using dose optimization technique as appropriate and may include automated exposure control or mA/KV adjustment according to patient size. FINDINGS: origin left posterior cerebral artery The distal internal carotid basilar, anterior cerebral, middle cerebral and posterior cerebral arteri es do not demonstrate a significant abnormality An aneurysm is not seen A significant stenosis is not noted. No large vessel occlusion IMPRESSION: No significant abnormality is displayed
--- NOTE | 2023-06-10 13:55 | RAD REPORT ---
EXAM DESCRIPTION: Sourav Angio06/10/2023 1:26 pm CLINICAL HISTORY: Slurred speech COMPARISON: None TECHNIQUE: 100 cc Isovue [address] angiogram of the neck was obtained. 3D MIPS reconstruction performed. All CT scans are performed using dose optimization technique as appropriate and may include automated exposure control or mA/KV adjustment according to patient size. FINDINGS: Mild plaque is present within common carotid, internal carotid and external carotid arteri es bilaterally Left vertebral artery is hypoplastic. Vertebral arteries unremarkable No dissection is seen. No high-grade stenosis IMPRESSION: Mild plaque within the carotid and vertebral arteries [place] crier[place] Mild stenosis 0 to 49 % Moderate stenosis 50-69% Severe stenosis 70-99%
--- NOTE | 2023-06-10 14:15 | EDPHYS ---
Physician Documentation [facility] Name: Chris Wayne Age: 67 yrs Sex: Male : 1955 Arrival Date: 06/10/2023 Time: 12:25 Bed 2 Private MD: ED Physician Jonathan Abrams HPI: 06/10 16:05 This 67 yrs old Male presents to ER via Ambulatory with complaints of Slurred Speech. rt 16:05 Patient presents to the ED with slurred speech, facial droop. noted a facial droop rt on Tuesday, stated that the following day, the patient developed slurred speech that has been slowly worsening since then. Denies any numbness, tingling. Denies other acute complaints at this time. Symptoms are moderate in severity, no other aggravating or alleviating factors.. Historical: - Allergies: 12:29 No Known Allergies; ss - PMHx: 12:29 Hypercholesterolemia; Hypertensive disorder; ss - Immunization history:: Adult Immunizations unknown. - Family history:: not pertinent. - Social history:: Smoking status: Patient denies any tobacco usage or history of. ROS: 16:05 Constitutional: Negative for fever, chills, and weight loss, Eyes: Negative for injury, rt pain, redness, and discharge, Cardiovascular: Negative for chest pain, palpitations, and edema, Respiratory: Negative for shortness of breath, cough, wheezing, and pleuritic chest pain, Abdomen/GI: Negative for abdominal pain, nausea, vomiting, diarrhea, and constipation, MS/Extremity: Negative for injury and deformity, Skin: Negative for injury, rash, and discoloration, Psych: Negative for depression, anxiety, suicide ideation, homicidal ideation, and hallucinations. 16:05 Neuro: Positive for Dysarthria, facial droop. Exam: 15:59 Constitutional: This is a well developed, well nourished patient who is awake, alert, rt and in no acute distress. Head/Face: Normocephalic, atraumatic. Chest/axilla: Normal chest wall appearance and motion. Nontender with no deformity. No lesions are appreciated. Cardiovascular: Regular rate and rhythm with a normal S1 and S2. No gallops, murmurs, or rubs. Normal PMI, no JVD. No pulse deficits. Respiratory: Lungs have equal breath sounds bilaterally, clear to auscultation and percussion. No rales, rhonchi or wheezes noted. No increased work of breathing, no retractions or nasal flaring. Abdomen/GI: Soft, non-tender, with normal bowel sounds. No distension or tympany. No guarding or rebound. No evidence of tenderness throughout. Skin: Warm, dry with normal turgor. Normal color with no rashes, no lesions, and no evidence of cellulitis. MS/ Extremity: Pulses equal, no cyanosis. Neurovascular intact. Full, normal range of motion. Psych: Awake, alert, with orientation to person, place and time. Behavior, mood, and affect are within normal limits. 15:59 ECG was reviewed by the Attending Physician. 15:59 Neuro: Right-sided facial droop, dysarthria, no aphasia noted, strength and sensation intact in the lower extremities, cranial nerves otherwise intact. Vital Signs: 12:30 BP 243 / 78; Pulse 78; Resp 18; Temp 98.4(TE); Pulse Ox 97% on R/A; Height 5 ft. 11 in. ss ; Pain 0/10; 12:30 BP 243 / 123; Pulse 72; Resp 18; Temp 98.4(O); Pulse Ox 97% on R/A; Pain 0/10; ss 13:04 BP 212 / 103; Pulse 70; Resp 18; Pulse Ox 99% ; ko1 14:39 BP 182 / 110; Pulse 63; Resp 16; Pulse Ox 97% ; bp 12:30 Pain Scale: Adult ss 12:30 Pain Scale: Adult ss NIH Stroke Scale Scores: 12:30 NIHSS Score: 0 bp MDM: 12:41 Patient medically screened. rt 16:05 Data reviewed: vital signs, nurses notes, lab test result(s), EKG, radiologic studies. rt Consideration of Admission/Observation Patient was admitted/placed on observation. Management of patient was discussed with the following: Hospitalist: Agrees to admit. I considered the following discharge prescriptions or medication management in the emergency department Medications were administered in the Emergency Department. See MAR. Independent interpretation of the following test(s) in the Emergency Department CT Scan: My interpretation is No hemorrhage seen on my interpretation of the CT scan images. Discussion of test interpretation with radiology: I had a discussion with radiology regarding a test interpretation. No hemorrhage. Care significantly affected by the following chronic conditions: Hypertension. Counseling: I had a detailed discussion with the patient and/or guardian regarding: the historical points, exam findings, and any diagnostic results supporting the discharge/admit diagnosis, lab results, radiology results, the need for further work-up and treatment in the hospital. ED course: Greater than 24 hours since the onset of symptoms, not a thrombolytic candidate. 06/10 12:56 Order name: Basic Metabolic Panel; Complete Time: 13:46 rt 06/10 12:56 Order name: CBC with Diff; Complete Time: 13:46 rt 06/10 12:56 Order name: Hepatic Function; Complete Time: 13:46 rt 06/10 12:56 Order name: High Sensitivity Troponin; Complete Time: 13:46 rt 06/10 12:56 Order name: Magnesium; Complete Time: 13:46 rt 06/10 12:56 Order name: Protime (+inr); Complete Time: 13:46 rt 06/10 12:56 Order name: Ptt, Activated; Complete Time: 13:46 rt 06/10 14:26 Order name: Lipid Profile EDMS 06/10 14:26 Order name: Lipid Profile EDMS 06/10 14:26 Order name: Troponin High Sensitivity EDMS 06/10 14:27 Order name: CREATININE WHOLE BLOOD; Complete Time: 15:42 EDMS 06/10 12:56 Order name: CT Stroke Brain w/o Contrast; Complete Time: 13:46 rt 06/10 12:56 Order name: Stroke CXR 1 View; Complete Time: 15:42 rt 06/10 12:56 Order name: CT Head Angio; Complete Time: 13:57 rt 06/10 12:56 Order name: CT Neck Angio; Complete Time: 13:57 rt 06/10 14:07 Order name: MRI - Brain Wo Cont; Complete Time: 15:42 rt 06/10 12:56 Order name: EKG; Complete Time: 12:57 rt 06/10 14:26 Order name: NPO EDSD 06/10 12:56 Order name: Accucheck; Complete Time: 13:07 rt 06/10 12:56 Order name: Cardiac monitoring; Complete Time: 13:07 rt 06/10 12:56 Order name: EKG - Nurse/Tech; Complete Time: 13:07 rt 06/10 12:56 Order name: IV Saline Lock; Complete Time: 13:07 rt 06/10 12:56 Order name: Labs collected and sent; Complete Time: 13:07 rt 06/10 12:56 Order name: NPO; Complete Time: 13:06 rt 06/10 12:56 Order name: O2 Per Protocol; Complete Time: 13: rt 06/10 12:56 Order name: O2 Sat Monitoring; Complete Time: 13:06 rt 06/10 12:56 Order name: Stroke Swallow Screen; Complete Time: 13:06 rt EC:59 Rate is 66 beats/min. Rhythm is regular, Normal Sinus Rhythm with Right bundle branch rt block. QRS [place] is Normal. NE interval is normal. QRS interval is normal. QT interval is normal. No Q waves. Interpreted by me. Administered Medications: 14:38 Drug: Aspirin PO 325 mg Route: PO; bp 15:44 Follow up: Response: No adverse reaction bp Disposition Summary: 06/10/23 14:14 Hospitalization Ordered Hospitalization Status: Observation rt Provider: Mark Escobar rt Location: Telemetry/MedSurg (observation) rt Condition: Stable rt Problem: new rt Symptoms: are unchanged rt Bed/Room Type: Standard rt Room Assignment: 217(06/10/23 15:44) ja1 Diagnosis - Acute CVA rt Forms: - Medication Reconciliation Form rt - SBAR form rt NIH Stroke Scale - NIH Stroke Score Date: 06/10/2023 Time: 12:30 Total Score = 0 10. Dysarthria (speech clarity - read or repeat words) - 0(Normal) 11. Extinction and Inattention (visual/tactile/auditory/spatial/personal) - 0(No abnormality) 1a. Level of Consciousness (LOC) - 0(Alert) 1b. Level of Consciousness (LOC) (Month \T\ Age) - 0(Both) 1c. LOC Commands (Open \T\ Closes Eyes/Machine Fitter) - 0(Both) 2. Best Gaze (Lateral Gaze Paresis) - 0(Normal) 3. Visual Field Loss - 0(No visual loss) 4. Facial Palsy - 0(Normal) 5a. Left Arm: Motor (10-second hold) - 0(No drift) 5b. Right Arm: Motor (10-second hold) - 0(No drift) 6a. Left Leg: Motor (5-second hold - always test supine) - 0(No drift) 6b. Right Leg: Motor (5-second hold - always test supine) - 0(No drift) 7. Limb Ataxia (finger/nose \T\ heel/raya - test with eyes open) - 0(Absent) 8. Sensory Loss (pinprick arms/legs/face) - 0(Normal) 9. Best Language: Aphasia (description/naming/reading) - 0(No aphasia) Initials: bp Signatures: Dispatcher [employer] EDBekah Ochoa RN RN Trip Cherry RN RN ken1 Alejandro Terrazas RN RN bp Oliver, Kathy, RN RN ko1 Jonathan Abrams MD MD rt Corrections: (The following items were deleted from the chart) 15:44 14:14 rt federico
--- NOTE | 2023-06-10 14:15 | ER ---
Nurse's Notes [facility] Name: Chris Wayne Age: 67 yrs Sex: Male : 1955 Arrival Date: 06/10/2023 Time: 12:25 Bed 2 Private MD: Diagnosis: Acute CVA Presentation: 06/10 12:30 Chief complaint: Spouse and/or significant other states: Slurred speech and facial ss droop that began Tuesday afternoon. reports last known well was Tuesday morning. Pt was sent by home health nurse because of his slurred speech and high blood pressure which was 208/111 prior to arrival. Coronavirus screen: Client denies travel out of the [place] in the last 14 days. Ebola Screen: Patient denies exposure to infectious person. Patient denies travel to an Ebola-affected area in the 21 days before illness onset. Initial Sepsis Screen: Does the patient meet any 2 criteria? No. Patient's initial sepsis screen is negative. Does the patient have a suspected source of infection? No. Patient's initial sepsis screen is negative. Risk Assessment: Do you want to hurt yourself or someone else? Patient reports no desire to harm self or others. Onset of symptoms was June 08, 2023. 12:30 Method Of Arrival: Ambulatory ss 12:30 Acuity: ROBERT 2 ss 16:20 An acute neurological deficit is present. Pre-hospital glucose is not applicable to ko1 this patient. Triage Assessment: 12:30 The onset of the patients symptoms was more than six hours ago. The onset of the bp patients symptoms was June 08, 2023 at 08:00. General: Appears in no apparent distress. Behavior is calm, cooperative, appropriate for age. Pain: Denies pain. EENT: No deficits noted. Neuro: Reports SLURRED SPEECH. Cardiovascular: No deficits noted. Respiratory: No deficits noted. GI: No signs and/or symptoms were reported involving the gastrointestinal system. : No signs and/or symptoms were reported regarding the genitourinary system. Derm: No deficits noted. Musculoskeletal: No deficits noted. Stroke Activation: Symptom onset > 6 hours Physician: Stroke Attending; Name: ; Notified At: ; Arrived At: Physician: Chief Stroke Resident; Name: ; Notified At: ; Arrived At: Physician: Stroke Resident; Name: ; Notified At: ; Arrived At: Physician: ED Attending; Name: ; Notified At: ; Arrived At: Physician: ED Resident; Name: ; Notified At: ; Arrived At: Historical: - Allergies: 12:29 No Known Allergies; ss - PMHx: 12:29 Hypercholesterolemia; Hypertensive disorder; ss - Immunization history:: Adult Immunizations unknown. - Family history:: not pertinent. - Social history:: Smoking status: Patient denies any tobacco usage or history of. Screenin:38 [facility] ED Fall Risk Assessment (Adult) History of falling in the last 3 months, bp including since admission No falls in past 3 months (0 pts). Abuse screen: Denies threats or abuse. Denies injuries from another. Nutritional screening: No deficits noted. Tuberculosis screening: No symptoms or risk factors identified. Assessment: 12:30 VAN Scoring: Arm Drift: Patients demonstrates NO arm weakness. Patient is VAN Negative. bp [place] Swallow Protocol Exclusion Criteria: NPO for medical/surgical reason by provider order Yes. TNKase (Tenecteplase) Screening: Contraindications: Patient reports onset of signs and symptoms of stroke greater than 6 hours ago: Yes. General: SEE TRIAGE NOTE. 13:30 Reassessment: No changes from previously documented assessment. Patient is alert, bp oriented x 3, equal unlabored respirations, skin warm/dry/pink. 14:39 Reassessment: No changes from previously documented assessment. Patient is alert, bp oriented x 3, equal unlabored respirations, skin warm/dry/pink. Vital Signs: 12:30 BP 243 / 78; Pulse 78; Resp 18; Temp 98.4(TE); Pulse Ox 97% on R/A; Height 5 ft. 11 in. ss ; Pain 0/10; 12:30 BP 243 / 123; Pulse 72; Resp 18; Temp 98.4(O); Pulse Ox 97% on R/A; Pain 0/10; ss 13:04 BP 212 / 103; Pulse 70; Resp 18; Pulse Ox 99% ; ko1 14:39 BP 182 / 110; Pulse 63; Resp 16; Pulse Ox 97% ; bp 12:30 Pain Scale: Adult ss 12:30 Pain Scale: Adult ss NIH Stroke Scale Scores: 12:30 NIHSS Score: 0 bp ED Course: 12:27 Patient arrived in ED. im 12:30 Arm band placed on right wrist. ss 12:33 Triage completed. ss 12:34 Alejandro Terrazas, RN is Primary Nurse. bp 12:35 Jonathan Abrams MD is Attending Physician. rt 13:07 Inserted saline lock: 20 gauge in right forearm, using aseptic technique. Blood bp collected. 13:13 CT Stroke Brain w/o Contrast In Process Unspecified. EDMS 13:28 CT Head Angio In Process Unspecified. EDMS 13:28 CT Neck Angio In Process Unspecified. EDMS 13:38 Patient has correct armband on for positive identification. Bed in low position. Call bp light in reach. Side rails up X2. Adult w/ patient. 14:14 Mark Escobar MD is Hospitalizing Provider. rt 14:33 Stroke CXR 1 View In Process Unspecified. EDMS 15:23 MRI - Brain Wo Cont In Process Unspecified. EDMS 16:17 No provider procedures requiring assistance completed. Patient admitted, IV remains in ko1 place. 16:19 Provided Education on: admit. ko1 Administered Medications: 14:38 Drug: Aspirin PO 325 mg Route: PO; bp 15:44 Follow up: Response: No adverse reaction bp Medication: 16:19 VIS not applicable for this client. ko1 Outcome: 14:14 Decision to Hospitalize by Provider. rt 16:17 Admitted to Tele via stretcher, room 217, with chart, Report called to Eloisa donald 16:17 Condition: stable 16:17 Instructed on the need for admit, Demonstrated understanding of instructions. 16:41 Patient left the ED. ko1 NIH Stroke Scale - NIH Stroke Score Date: 06/10/2023 Time: 12:30 Total Score = 0 10. Dysarthria (speech clarity - read or repeat words) - 0(Normal) 11. Extinction and Inattention (visual/tactile/auditory/spatial/personal) - 0(No abnormality) 1a. Level of Consciousness (LOC) - 0(Alert) 1b. Level of Consciousness (LOC) (Month \T\ Age) - 0(Both) 1c. LOC Commands (Open \T\ Closes Eyes/Color Maker) - 0(Both) 2. Best Gaze (Lateral Gaze Paresis) - 0(Normal) 3. Visual Field Loss - 0(No visual loss) 4. Facial Palsy - 0(Normal) 5a. Left Arm: Motor (10-second hold) - 0(No drift) 5b. Right Arm: Motor (10-second hold) - 0(No drift) 6a. Left Leg: Motor (5-second hold - always test supine) - 0(No drift) 6b. Right Leg: Motor (5-second hold - always test supine) - 0(No drift) 7. Limb Ataxia (finger/nose \T\ heel/raya - test with eyes open) - 0(Absent) 8. Sensory Loss (pinprick arms/legs/face) - 0(Normal) 9. Best Language: Aphasia (description/naming/reading) - 0(No aphasia) Initials: bp Signatures: Dispatcher [employer] EDBekah Ochoa RN RN ss Alejandro Terrazas RN RN bp Oliver, Kathy, RN RN ko1 Jonathan Abrams MD MD rt Aruna Robertson im
[2023-06-10] MEDS ORDERED: AMLODIPINE 5 MG TAB PO SCH (14:24)
[2023-06-10] MEDS ORDERED: HYDRALAZINE HCL 20 MG/ML VIAL IV PRN (14:25)
--- NOTE | 2023-06-10 14:31 | P.HP ---
Certification for Inpatient With expected LOS: >2 Midnights Practitioner: I am a practitioner with admitting privileges, knowledge of patient current condition, hospital course, and medical plan of care. Services: Services provided to patient in accordance with Admission requirements found in Title 42 Section 412.3 of the Code of Federal Regulations Patient History Date of Service: 06/10/23 Reason for admission: Stroke History of Present Illness: Patient is 67 years of age people noticed that he had a slurred speech on Tuesday and any weakness of his extremities mild and also noticed also that he has slurred speech and was sent to the emergency room still has a slurred speech she denies any weakness of his extremities no problems swallowing pressure was very elevated on admission 208/111 prior to arrival - Past Medical/Surgical History Diabetic: No -: HTN -: HLD -: DVT -: WOUND CARE -: HLPD Review of Systems 10-point ROS is otherwise unremarkable Physical Examination - Vital Signs Temperature: 98.4 F Blood Pressure: 243/78 Pulse: 78 Respirations: 18 Pulse Ox (%): 97 - Physical Exam General: Alert, In no apparent distress, Oriented x3 Neck: Supple Respiratory: Clear to auscultation bilaterally Cardiovascular: No edema, Regular rate/rhythm Gastrointestinal: Normal bowel sounds, Soft and benign Musculoskeletal: No clubbing, No swelling Neurological: Normal strength at 5/5 x4 extr, Sensation intact, Cranial nerves 3-12 intact, Abnormal speech - Studies Laboratory Data (last 24 hrs) 06/10/23 06/10/23 06/10/23 13:05 13:05 13:05 WBC 6.50 Hgb 15.5 Hct 46.4 Plt Count 279 PT 10.9 INR 0.99 APTT 32.5 Sodium 139 Potassium 3.8 BUN 13 Creatinine 0.85 Glucose 91 Magnesium 2.3 Total Bilirubin 0.5 AST 12 L ALT 15 L Alkaline Phosphatase 85 Assessment and Plan - Problems (Diagnosis) (1) Cerebrovascular accident involving cerebellum Current Visit: Yes Status: Acute Plan: Pt is 67 yrs of age AW slurred speech since 06/08, Severe HTN, 13mm infarct L cerebellum, CT head angio neg, No sig carotid stenosis/labs unremarkable pending otherwise he has no neurological deficit (2) HTN (hypertension) Current Visit: Yes Status: Acute Plan: Severe HTN patient does not take antihypertensive medication at home severe hypertensive emergency we will plan to use labetalol and amlodipine to control his blood pressure for now resume his home medications does not appear to have an acute stroke but is at risk for further complications secondary to hypertension Qualifiers: Hypertension type: primary hypertension Qualified Code(s): I10 - Essential (primary) hypertension - Advance Directives Does patient have a Living Will: No Does patient have a Durable POA for Healthcare: No
[2023-06-10] MEDS ORDERED: ASPIRIN 325 MG TAB ONE (14:45)
[2023-06-10] MEDS ORDERED: NA CHLORIDE 0.9% 1,000 ML IV SCH (15:00)
--- NOTE | 2023-06-10 15:15 | RAD REPORT ---
EXAM DESCRIPTION: Taylor Single View06/10/2023 2:32 pm CLINICAL HISTORY: Chest pain COMPARISON: none FINDINGS: Left lateral base is hazy Remaining lungs appear clear. Heart is normal size IMPRESSION: Left lateral base is hazy probably overlying soft tissue. As an infiltrate can also have this appearance it is recommended that the patient have a PA and lateral chest series
--- NOTE | 2023-06-10 15:40 | RAD REPORT ---
EXAM DESCRIPTION: MRI - Brain Wo Cont - 06/10/2023 3:25 pm CLINICAL HISTORY: Slurred speech/CVA COMPARISON: Head CT June 10, 2023 TECHNIQUE: Axial, sagittal, and coronal magnetic resonance images of the brain were obtained. FINDINGS: 5 millimeter area of abnormal signal to the right of midline within the sophy probably old infarction. 13 millimeter area of abnormal signal left cerebellum probably old infarction. 6 x 3 millimeter acute infarct subcortical white matter posterior left frontal lobe The ventricles are normal caliber. An extra-axial fluid collection is not noted. Fluid within the sinuses/mastoids is not seen. Mild chronic sinusitis IMPRESSION: 6 x 3 millimeter acute infarct subcortical white matter posterior left frontal lobe
[2023-06-10] MEDS ORDERED: LABETALOL 20 MG/4ML SYRINGE IV PRN (16:54)
[2023-06-10] MEDS ORDERED: LABETALOL 20 MG/4ML SYRINGE IV STA (16:56)
[2023-06-10] MEDS ORDERED: LABETALOL 20 MG/4ML SYRINGE IV ONE (17:08)
[2023-06-10 17:17] VITALS: O2SAT 97
[2023-06-10] MEDS: ENOXAPARIN 40 MG/0.4 ML SQ SCH (17:29)
[2023-06-10] MEDS: ASPIRIN EC 81 MG TAB PO SCH (17:30)
[2023-06-10] MEDS: ATORVASTATIN 10 MG TAB PO SCH ×2 (17:31→21:31)
[2023-06-10] MEDS: AMLODIPINE 5 MG TAB PO SCH (17:31)
[2023-06-10 18:16] VITALS: BMI 32.5
[2023-06-10] MEDS ORDERED: PNEUMOCOCCAL VACCINE 0.5 ML IMVAC ONE (20:00)
[2023-06-10] MEDS: LABETALOL 20 MG/4ML SYRINGE IV PRN (21:31)
[2023-06-11 04:36] LABS: Potassium 3.6 mEq/L (3.5-5.1)
[2023-06-11] MEDS: LABETALOL 20 MG/4ML SYRINGE IV PRN ×2 (08:45→12:35)
[2023-06-11] MEDS: AMLODIPINE 5 MG TAB PO SCH (08:45)
[2023-06-11] MEDS: ASPIRIN EC 81 MG TAB PO SCH (08:46)
[2023-06-11] MEDS: ENOXAPARIN 40 MG/0.4 ML SQ SCH (08:47)
[2023-06-11] MEDS ORDERED: ASPIRIN EC 81 MG TAB PO SCH (09:00)
--- NOTE | 2023-06-11 10:32 | P.DS ---
Admission Date: 06/10/23 Discharge Date: 06/11/23 Disposition: ROUTINE DISCHARGE Discharge Condition: GOOD Reason for Admission: Stroke - Problems (1) Cerebrovascular accident involving cerebellum Current Visit: Yes Status: Acute (2) HTN (hypertension) Current Visit: Yes Status: Acute Qualifiers: Hypertension type: primary hypertension Qualified Code(s): I10 - Essential (primary) hypertension Brief History of Present Illness: Patient is 67 years of age people noticed that he had a slurred speech on Tuesday and any weakness of his extremities mild and also noticed also that he has slurred speech and was sent to the emergency room still has a slurred speech she denies any weakness of his extremities no problems swallowing pressure was very elevated on admission 208/111 prior to arrival Hospital Course: Patient is 67 years of age admitted with slurred speech kept here for observation did well his blood pressure was very high patient has a history of hypertension was unable to get his blood pressure medications pressure was controlled here with labetalol patient started on amlodipine at home he was ordered olmesartan with hydrochlorothiazide at time of discharge no focal weakness neurological exam was completely normal his speech had also improved MRI showed 6 mm infarct in the left posterior frontal lobe history of an old infarct Patient was discharged on triple therapy combination of olmesartan hydrochlorothiazide and low-dose amlodipine instructed him to monitor his blood pressure in the morning recorded 3 times at least with couple of minutes apart was also prescribed a statin in addition to an aspirin he is to follow-up with neurology and primary care doctor currently there is no evidence of any cerebrovascular disease the patient did have some hyperlipidemia he has had severe hypertension and the medication should help him Vital Signs/Physical Exam: Temp Pulse Resp BP Pulse Ox 96.9 F 78 18 192/94 H 97 06/11/23 08:00 06/11/23 08:45 06/11/23 08:00 06/11/23 08:45 06/11/23 08:00 Laboratory Data at Discharge: WBC 6.50 thou/uL (4.3-10.9) 06/10/23 13:05 Hgb 15.5 g/dL (13.6-17.9) 06/10/23 13:05 Hct 46.4 % (39.6-49.0) 06/10/23 13:05 Plt Count 279 thou/uL (152-406) 06/10/23 13:05 PT 10.9 SECONDS (9.5-12.5) 06/10/23 13:05 INR 0.99 06/10/23 13:05 APTT 32.5 SECONDS (24.3-36.9) 06/10/23 13:05 Sodium 141 mEq/L (136-145) 06/11/23 03:17 Potassium 3.6 mEq/L (3.5-5.1) 06/11/23 03:17 BUN 11 mg/dL (7-18) 06/11/23 03:17 Creatinine 0.81 mg/dL (0.70-1.30) 06/11/23 03:17 Glucose 93 mg/dL (74-106) 06/11/23 03:17 Magnesium 2.3 mg/dL (1.6-2.4) 06/10/23 13:05 Total Bilirubin 0.5 mg/dL (0.2-1.0) 06/10/23 13:05 AST 12 U/L (15-37) L 06/10/23 13:05 ALT 15 U/L (16-61) L 06/10/23 13:05 Alkaline Phosphatase 85 U/L (45-117) 06/10/23 13:05 Triglycerides 237 mg/dL (<150) H 06/11/23 03:17 Cholesterol 182 mg/dL (<200) 06/11/23 03:17 HDL Cholesterol 33 mg/dL (40-60) L 06/11/23 03:17 Cholesterol/HDL Ratio 5.52 06/11/23 03:17 Home Medications: Atorvastatin Calcium [Lipitor*] 10 mg PO BEDTIME 30 Days #30 tab 06/11/23 Olmesartan/Amlodipin/Hcthiazid [Wjzsyvl-Buswws-Zeua 20-5-12.5] 1 each PO DAILY 30 Days #30 tab 06/11/23 New Medications: Atorvastatin Calcium [Lipitor*] 10 mg PO BEDTIME 30 Days #30 tab Olmesartan/Amlodipin/Hcthiazid [Ywkmust-Vcjzdo-Afhl 20-5-12.5] 1 each PO DAILY 30 Days #30 tab Physician Discharge Instructions: Take 81 mg of asprin daily Diet: Regular Activity: Ad debo Followup: Dre Rios MD [ASSOCIATE-ACTIVE - CAN ADMIT] - NONE,NONE [Primary Care Provider] - Jaxson Dover DO [ACTIVE - CAN ADMIT] -
[2023-06-11 12:21] VITALS: TEMP 97.1
[2023-06-11 14:52] VITALS: BP 186/91
--- NOTE | 2023-06-13 13:11 | EKG ---
Test Date: 2023-06-10 Test Time: 12:42:52 Administrative Services Manager: NARESH MEASUREMENT RESULTS: Intervals: Rate: 66 ND: 178 QRSD: 138 QT: 466 QTc: 488 [place]: P: 40 ND: 178 QRS: 66 T: 52 INTERPRETIVE STATEMENTS: Normal sinus rhythm Right bundle branch block Abnormal ECG Compared to ECG 06/10/2023 12:41:58 No significant changes Electronically Signed On 06-13-23 13:08:09 CDT by Nicholas Velasquez
--- NOTE | 2023-06-13 13:12 | EKG ---
Test Date: 2023-06-10 Test Time: 12:41:58 Police [employer] Dispatcher: NARESH MEASUREMENT RESULTS: Intervals: Rate: 64 MA: 194 QRSD: 140 QT: 460 QTc: 474 [place]: P: 62 MA: 194 QRS: 69 T: 69 INTERPRETIVE STATEMENTS: Normal sinus rhythm Right bundle branch block Abnormal ECG Compared to ECG 11/27/1993 10:46:00 Right bundle-branch block now present Sinus bradycardia no longer present Electronically Signed On 06-13-23 13:08:11 CDT by Nicholas Velasquez
== END 2023-06-11 14:00 | disposition home or self-care (01) | DRG 66 ==
LOC: ER 12:25 → ERHOLD 14:21 → 2ND 16:23
PROVIDERS: ADMIT Internal Medicine Sleep Medicine; ATTEND Internal Medicine Sleep Medicine
DX: I63.9 Cerebral infarction, unspecified (principal); I10 Essential (primary) hypertension; E78.00 Pure hypercholesterolemia, unspecified; R29.700 NIHSS score 0; R47.81 Slurred speech; R29.810 Facial weakness; Z86.718 Personal history of other venous thrombosis and embolism; Z79.899 Other long term (current) drug therapy
CPT/HCPCS: 36415; 70450; 70496; 70498; 70551; 71045; 80048; 80061; 80076; 82565; 83735; 84484; 85025; 85610; 85730; 93005; 99285; J0360; J1650; Q9967